=== PATIENT | male | born 1980 | race Caucasian/White ===

== ENCOUNTER 2023-10-29 01:21 | Emergency (ER) | payer OTHER ==
[2023-10-29 01:35] VITALS: BP 139/88; PULSE 69; RESP 18; TEMP 99; BMI 35.5
[2023-10-29 02:58] LABS: BASO % 0.8 % (0-2.0); EOS % 2.2 % (0-4.5); HEMATOCRIT 40.5 % (35.4-49); HEMOGLOBIN 14.1 GM/dL (11.7-16.9); LYMPH % 23.3 % (8-40); MCH 28.1 pg (25.7-33.7); MCHC 34.7 g/dl (32.0-35.9); MEAN CELL VOLUME 80.9 fl (80-96); MEAN PLT VOLUME 6.6 fl (7.5-11.1); MONO % 9.5 % (3.8-10.2); NEUT % 64.2 % (42.8-82.8); PLATELET COUNT 303 10^3/uL (134-434); RBC 5.01 M/mm3 (4.00-5.60); RDW 14.2 % (11.9-15.9); WHITE BLOOD COUNT 8.7 K/mm3 (4.0-10.0)
[2023-10-29] MEDS ORDERED: ACETAMINOPHEN INJECTION 100 ML IVPB ONE (02:58)
[2023-10-29 03:05] LABS: INR 1.02 (0.83-1.09); PROTHROMBIN TIME (PATIENT) 11.7 SEC (9.7-13.0)
[2023-10-29 03:07] LABS: ACTIVATED PTT 31.7 SECONDS (25.2-36.5)
[2023-10-29] MEDS: ACETAMINOPHEN 1000 MG/100 ML BAG IVPB ONE (03:09)
[2023-10-29 03:15] LABS: POTASSIUM 3.8 mmol/L (3.5-5.1)
[2023-10-29 03:17] LABS: ALBUMIN 4.2 g/dl (3.4-5.0); BLOOD UREA NITROGEN 14.2 mg/dL (7-18); CALCIUM 8.7 mg/dL (8.5-10.1); MAGNESIUM 2.1 mg/dL (1.8-2.4)
[2023-10-29 03:21] LABS: CREATININE 1.2 mg/dL (0.55-1.3)
[2023-10-29 03:22] LABS: BILIRUBIN,TOTAL 0.5 mg/dL (0.2-1); TOT PROT 7.9 g/dl (6.4-8.2)
== END 2023-10-29 04:27 | disposition home or self-care (01) ==
LOC: JER 01:21
PROC: 3E033NZ Introduction of Analgesics, Hypnotics, Sedatives into Peripheral Vein, Percutaneous Approach (ICD-10-PCS; principal; 2023-10-29)
DX: R07.9 Chest pain, unspecified (principal); R06.02 Shortness of breath; R00.2 Palpitations; U07.1 COVID-19
CPT/HCPCS: 0241U-QW; 36415; 71046-TC-FY; 80053; 83735; 84439; 84443; 84484; 85025; 85610; 85730; 93005; 93010; 99285-25; J0131

== ENCOUNTER 2024-09-04 15:46 | Emergency (ER) | payer OTHER ==
[2024-09-04 15:54] VITALS: BP 137/80; PULSE 69; RESP 16; TEMP 98.9; BMI 36.8
== END 2024-09-04 18:22 | disposition home or self-care (01) ==
LOC: JERFT 15:46
DX: M71.21 Synovial cyst of popliteal space [Baker], right knee (principal); M25.561 Pain in right knee
CPT/HCPCS: 73562-TC-RT-FY; 93971-TC; 99284-25